=== PATIENT | female | born 1975 | race African-American/Black ===

== ENCOUNTER 2016-09-22 21:45 | Emergency (ER) | payer BC ==
[2016-09-22 21:04] LABS: ASCORBIC ACID (UR NOT ORDER) NEG (NEG); BILIRUBIN, URINE NEGATIVE (NEG); ER URINALYSIS TAT 0 Hrs 15 Mins; KETONE, URINE NEGATIVE (NEG); LEUKOCYTE ESTERASE(NOT OR SMALL (NEG); NITRITE (URINE) NEG (NEG); WBC (NOT ORDERED) (RFLEX) 11 (0-5)
[2016-09-22 21:48] LABS: BASOPHILS 0.5 %; BASOPHILS ABSOLUTE 0.03 10/3/uL (0.0-0.16); EOSINOPHILS 0.5 %; EOSINOPHILS ABSOLUTE 0.03 10/3/uL (0.0-0.53); HEMATOCRIT 39.1 % (36.0-48.0); HEMOGLOBIN 13.2 g/dL (12.0-16.0); IMMATURE GRANULOCYTES 0.2 %; IMMATURE GRANULOCYTES ABSOLUTE 0.01 10/3/uL (0.0-0.11); LYMPHOCYTES 35.2 %; LYMPHOCYTES ABSOLUTE 2.28 10/3/uL (0.67-4.30); MEAN CORPUS HGB CONC 33.8 g/dL (32.0-36.0); MEAN CORPUSCULAR HEMOGLOB 28.6 pg (26.0-34.0); MEAN CORPUSCULAR VOLUME 84.6 fL (80-100); MEAN PLATELET VOLUME 9.9 fL (9.2-13.0); MONOCYTES 7.1 %; MONOCYTES ABSOLUTE 0.46 10/3/uL (0.21-1.20); NEUTROPHILS 56.5 %; NEUTROPHILS ABSOLUTE 3.66 10/3/uL (2.02-8.40); RBC DISTRIBUTION WIDTH 14.7 % (12.0-16.0); RED CELL COUNT 4.62 10/6/uL (4.0-5.6)
[2016-09-22 21:53] LABS: ER CBC TAT 0 Hrs 09 Mins; MANUAL DIFF NO %; PLATELET COUNT 367 10/3/uL (150-400); WHITE BLOOD CELLS 6.5 10/3/uL (4.5-10.5)
[2016-09-22 22:04] LABS: CHLORIDE, SERUM 104 MMOL/L (96-112); CREATININE 0.88 MG/DL (0.55-1.02); GFR AFRICAN AMERICAN 95 ML/MIN (>=60); GFR NON AFRICAN AMERICAN 82 ML/MIN (>=60); GLUCOSE, SERUM 80 MG/DL (60-99); SGOT(AST) 22 U/L (5-40); SGPT(ALT) 24 U/L (5-65); SODIUM, SERUM 140 MMOL/L (135-148); TOTAL BILIRUBIN 0.3 MG/DL (0-1.2)
[2016-09-22 22:05] LABS: ALKALINE PHOSPHATASE 82 U/L (45-117); BUN (BLOOD UREA NITROGEN) 5 MG/DL (6-23); CO2 (CARBON DIOXIDE) 30 MMOL/L (24-34); POTASSIUM, SERUM 4.1 MMOL/L (3.5-5.3)
== END 2016-09-22 23:32 | disposition home or self-care (01) ==
LOC: ER 21:45
PROVIDERS: Emergency Medicine
DX: N39.0 Urinary tract infection, site not specified (principal); R19.7 Diarrhea, unspecified; F17.200 Nicotine dependence, unspecified, uncomplicated
CPT/HCPCS: 80053; 81001; 83690; 84703; 85025; 87086; 99284